=== PATIENT | male | born 1970 | race Caucasian/White ===

== ENCOUNTER 2016-08-08 06:51 | Emergency (ER) | payer OTHER, MEDICARE ==
[~2016-08-08 06:51] MED LIST: ASPIRIN CHILDRE81 MG PO; ASPIRIN81 M4 PO; ATORVASTATIN CA10 M1 PO; ATORVASTATIN CA40 MG PO; AUGMENTIN 875-1 EACH PO; FUROSEMIDE40 M1 PO; GLIPIZIDE10 M2 PO; GLIPIZIDE10 MG PO; LEXAPRO20 M1 PO; METFORMIN HCL1000 M1 PO; METFORMIN HCL500 MG PO; METFORMIN1000 MG PO; MYCOSTATIN POWD15 GM TOP; PERCOCET 325 MG1 TA2 PO; POTASSIUM CHLO10 ME1 PO; PRINIVIL10 MG PO; PRINIVIL20 M1 PO; TRAMADOL HCL50 M1 PO; TYLENOL TAB 32325 MG PO; TYLENOL500 MG PO; UNASYN 3000MG3000 M1 IV; ZOSYN 4 GM/100100 ML IV
--- NOTE | 2016-08-08 07:04 | ED GENERAL ADULT ---
History of Present Illness General Chief Complaint: General Adult Stated Complaint: HYPERGLACEMIA Source: patient, old records, EMS Exam Limitations: no limitations Vital Signs & Intake/Output Vital Signs & Intake/Output Vital Signs Date Time Temp Pulse Resp B/P B/P Pulse O2 O2 Flow FiO2 Mean Ox Delivery Rate 08/08 1229 98.9 102 20 123/76 97 Room Air 08/08 1051 99.0 108 20 140/83 96 Room Air 08/08 0920 97.9 88 20 125/71 96 Room Air 08/08 0758 98.0 103 20 127/79 08/08 0710 98 Room Air 08/08 0656 97.2 108 21 136/55 95 Room Air Allergies Coded Allergies: NO KNOWN ALLERGIES (07/08/14) Reconcile Medications Atorvastatin Calcium 10 MG TABLET 1 TAB PO DAILY CHOLESTEROL (Reported) Escitalopram Oxalate (Lexapro) 20 MG TABLET 1 TAB PO DAILY DEPRESSION ( Reported) Reason to Stop at ADM: HYPONATREMIA Furosemide 40 MG TABLET 1 TAB PO DAILY LEG EDEMA (Reported) Reason to Stop at ADM: AMIRAH Glipizide 10 MG TABLET 1 TAB PO BID DIABETES (Reported) Reason to Stop at ADM: ON ISS Lisinopril (Prinivil) 20 MG TABLET 1 TAB PO DAILY HYPERTENSION (Reported) Reason to Stop at ADM: AMIRAH Metformin HCl 1,000 MG TABLET 1 TAB PO BID DIABETES (Reported) Reason to Stop at ADM: AMIRAH Tramadol HCl 50 MG TABLET 50 MG PO Q6 PRN PAIN 5-10 Triage Nurses Notes Reviewed? yes HPI: Patient was sitting on his couch watching TV this morning when he suddenly felt lightheaded like he was going to pass out. Patient is also noticed that he is been urinating more frequently over the past few days. Patient is a diabetic does not check his blood sugar. Patient denies any chest pain or palpitations. There is no nausea or vomiting. He has been feeling generalized weakness. He denies any fevers or chills. There is no orthopnea. Patient states he has obstructive sleep apnea and uses a CPAP at night. Past History Travel History Traveled to [place] past 21 day No Medical History Any Pertinent Medical History? 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 No Review of Systems Review of Systems Constitutional: Reports: see HPI, weakness. EENTM: Reports: no symptoms. Respiratory: Reports: no symptoms. Cardiovascular: Reports: no symptoms. GI: Reports: no symptoms. Genitourinary: Reports: see HPI, frequency. Musculoskeletal: Reports: no symptoms. Skin: Reports: no symptoms. Neurological/Psychological: Reports: see HPI. Hematologic/Endocrine: Reports: no symptoms. Immunologic/Allergic: Reports: no symptoms. All Other Systems: Reviewed and Negative Physical Exam Physical Exam General Appearance: well developed/nourished, alert, awake, anxious, mild distress Head: atraumatic, normal appearance Eyes: Bilateral: PERRL, EOMI. Ears, Nose, Throat: normal pharynx, normal ENT inspection Neck: normal inspection, supple, full range of motion Respiratory: normal breath sounds, chest non-tender, no respiratory distress, lungs clear Cardiovascular: regular rate/rhythm, normal peripheral pulses Gastrointestinal: normal bowel sounds, soft, non-tender Back: normal inspection, normal range of motion Extremities: normal capillary refill, pedal edema Neurologic/Psych: no motor/sensory deficits, awake, alert, oriented x 3, normal mood/affect Skin: intact, normal color, warm/dry Lymphatic: no anterior cervical matt Core Measures ACS in differential dx? No CVA/TIA Diagnosis: No Severe Sepsis Present: No Septic Shock Present: No Progress Differential Diagnoses I considered the following diagnoses in my evaluation of the patient: [ Hyperglycemia, DKA, hyperosmolar nonketotic, electrolyte abnormality, UTI, AMI] Plan of Care: Orders Procedure Date/time Status Consistent Carbohydrate 3 08/08 L Active TROPONIN LEVEL 08/08 1154 Complete ARTERIAL BLOOD GAS (GEN) 08/08 0711 Complete Telemetry/Cutting Pressman 08/08 0711 Active URINALYSIS 08/08 700 Complete TROPONIN LEVEL 08/08 700 Complete COMPREHENSIVE METABOLIC PANEL 08/08 700 Complete CBC WITHOUT DIFFERENTIAL 08/08 700 Complete ACETONE 08/08 700 Complete EKG 08/08 700 Active Laboratory Tests 08/08/16 1214: Troponin I < 0.01 08/08/16 1120: Urine Color YEL, Urine Clarity CLEAR, Urine pH 6.0, Ur Specific [place] 1.015, Urine Protein TRACE H, Urine Ketones NEG, Urine Nitrite NEG, Urine Bilirubin NEG, Urine Urobilinogen 0.2, Ur Leukocyte Esterase NEG, Ur Microscopic SEDIMENT EXAMINED, Urine RBC RARE, Ur Epithelial Cells RARE, Urine Hemoglobin NEG, Urine Glucose >=1000 H 08/08/16 0725: pH 7.42, pCO2 35, pO2 83, HCO3 23, ABG O2 Sat (Measured) 95.0 L, P-50 (Temp Corrected) N, Carboxyhemoglobin 1.0 L, O2 Concentration % .21, O2 Delivery Method RA, Phlebotomy Draw Site RIGHT RADIAL 08/08/16 0710: Anion Gap 13, Estimated GFR > 60, BUN/Creatinine Ratio 21.3, Glucose 497 H, Calcium 8.6, Total Bilirubin 0.5, AST 13 L, ALT 29, Alkaline Phosphatase 117, Troponin I < 0.01, Total Protein 6.8, Albumin 3.6, Globulin 3.2, Albumin/ Globulin Ratio 1.1, CBC w Diff NO MAN DIFF REQ, RBC 4.87, MCV 82.0, MCH 27.4, RDW 14.0, MPV 9.2, Gran % 67.6, Lymphocytes % 24.0, Monocytes % 5.5, Eosinophils % 2.4, Basophils % 0.5, Absolute Granulocytes 5.4, Absolute Lymphocytes 1.9, Absolute Monocytes 0.4, Absolute Eosinophils 0.2, Absolute Basophils 0, PUBS MCHC 33.4, Acetone Level NEGATIVE Pre-Hospital EKG: NSR, nonspecific ST T wave chg Initial ED EKG: S TACH AT 107, NO STT CHANGES Prior EKG: unchanged Rhythm Strip: normal sinus rhythm Departure Departure Disposition: HOME OR SELF CARE Condition: Stable Clinical Impression Primary Impression: Hyperglycemia Referrals: JOLYNN CALLEJAS,ARGENTINA Koenig (PCP/Family) Additional Instructions: RETURN IF SYMPTOMS WORSEN OR FOR ANY CONCERNS Departure Forms: Customer Survey General Discharge Information Critical Care Note Critical Care Note Critical Care Time: non-applicable
[2016-08-08 07:49] LABS: ABSOLUTE BASOPHIL COUNT 0 /CUMM (0.0-0.2); ABSOLUTE EOSINOPHIL COUNT 0.2 /CUMM (0.0-0.7); ABSOLUTE GRANULOCYTE CT 5.4 /CUMM (1.4-6.5); ABSOLUTE LYMPH COUNT 1.9 /CUMM (1.2-3.4); ABSOLUTE MONOCYTE COUNT 0.4 /CUMM (0.10-0.60); BASOPHIL % 0.5 % (0.0-2.0); EOSINOPHIL % 2.4 % (0-5); GRANULOCYTE % 67.6 % (42.2-75.2); HEMATOCRIT 39.9 % (42-52); MEAN CORPUSCULAR HGB 27.4 PG (27.0-31.0); MEAN CORPUSCULAR HGB CONC 33.4 G/DL (33.0-37.0); MEAN PLATELET VOLUME 9.2 FL (7.4-10.4); PLATELET COUNT 210 /CUMM (130-400); RED BLOOD CELL CT 4.87 /CUMM (4.70-6.10)
[2016-08-08 12:29] VITALS: BP 123/76
== END 2016-08-08 13:28 ==
LOC: ERH 06:51
PROVIDERS: Emergency Medicine
DX: E11.65 Type 2 diabetes mellitus with hyperglycemia (principal)
CPT/HCPCS: 81001; 93005; 93010; 96360; 96361; 96372; J1815

== ENCOUNTER 2017-07-03 18:49 | Emergency (ER) | payer OTHER ==
[~2017-07-03] VITALS: Ht 167.6 cm; Wt 136.1 kg
--- NOTE | 2017-07-03 19:35 | ED GI/GU/ABDOMINAL COMPLAINT ---
History of Present Illness General Chief Complaint: Abdominal Pain/Flank Pain Stated Complaint: L LOWER FLANK PAIN/VOMITNG Source: patient Exam Limitations: no limitations Vital Signs & Intake/Output Vital Signs & Intake/Output Vital Signs Date Time Temp Pulse Resp B/P B/P Pulse O2 O2 Flow FiO2 Mean Ox Delivery Rate 07/03 2234 97.1 91 20 137/71 95 Room Air 07/03 1925 97.0 81 20 185/77 Allergies Coded Allergies: NO KNOWN ALLERGIES (07/08/14) Reconcile Medications Atorvastatin Calcium 10 MG TABLET 1 TAB PO DAILY CHOLESTEROL (Reported) Escitalopram Oxalate (Lexapro) 20 MG TABLET 1 TAB PO DAILY DEPRESSION ( Reported) Reason to Stop at ADM: HYPONATREMIA Furosemide 40 MG TABLET 1 TAB PO DAILY LEG EDEMA (Reported) Reason to Stop at ADM: AMIRAH Glipizide 10 MG TABLET 1 TAB PO BID DIABETES (Reported) Reason to Stop at ADM: ON ISS Ibuprofen 800 MG TABLET 1 TAB PO TID PRN PAIN Lisinopril (Prinivil) 20 MG TABLET 1 TAB PO DAILY HYPERTENSION (Reported) Reason to Stop at ADM: AMIRAH Metformin HCl 1,000 MG TABLET 1 TAB PO BID DIABETES (Reported) Reason to Stop at ADM: AMIRAH Ondansetron (Zofran Odt) 4 MG TAB.RAPDIS 1 TAB SL TID PRN NAUSEA Tramadol HCl 50 MG TABLET 50 MG PO Q6 PRN PAIN 5-10 Triage Note: PT BIBA TO TRIAGE C/O LEFT FLANK PAIN X 1 WEEK, WORSENING TODAY WITH N/V. DENIES URINARY S/SX. DENIES HX KIDNEY STONES, REPORTS HX OF GALLSTONES. Triage Nurses Notes Reviewed? yes Onset: Gradual Duration: hour(s): Timing: single episode today Quality/Severity: sharpness Location: left flank Radiation: no radiation Activities at Onset: none Modifying Factors: Worsens With: palpation, vomiting. Associated Symptoms: abdominal pain, nausea/vomiting HPI: 47 yo gentleman h/o brandi, diabetes, depression, presents with 4-5 hours of left flank pain and nausea, without diarrhea, dysuria , fever, chest pain. He notes sudden onset, no suspicious ingestions. He is otherwise well. Past History Travel History Traveled to [place] past 21 day No Medical History Any Pertinent Medical History? see below for history Neurological: vertigo EENT: periodontal abscess June 2014 Cardiovascular: chronic venous insuff, hypertension, hyperlipidemia Respiratory: obstructive sleep apnea Gastrointestinal: NONE Hepatic: NONE Renal: NONE Musculoskeletal: osteoarthritis Psychiatric: anxiety, depression Endocrine: diabetes, obesity Blood Disorders: NONE Cancer(s): NONE HOSPITAL NURSE/Reproductive: NONE History of MRSA: No History of VRE: No History of CDIFF: No Surgical History Surgical History: status post bilateral partial calcanectomies Psychosocial History Who do you live with Patient/Self Services at Home None What is your primary language Syriac Tobacco Use: Never used ETOH Use: denies use Family History Family History, If Any: BROTHER FH: schizophrenia FATHER FH: diabetes mellitus Hx Contributory? No Review of Systems Review of Systems Constitutional: Reports: no symptoms. EENTM: Reports: no symptoms. Respiratory: Reports: no symptoms. Cardiovascular: Reports: no symptoms. GI: Reports: no symptoms. Genitourinary: Reports: no symptoms. Musculoskeletal: Reports: no symptoms. Skin: Reports: no symptoms. Neurological/Psychological: Reports: no symptoms. Hematologic/Endocrine: Reports: no symptoms. Immunologic/Allergic: Reports: no symptoms. All Other Systems: Reviewed and Negative Physical Exam Physical Exam General Appearance: well developed/nourished, mild distress Head: atraumatic, normal appearance Eyes: Bilateral: normal appearance. Ears, Nose, Throat, Mouth: hearing grossly normal, moist mucous membrane Neck: normal inspection, supple, full range of motion Respiratory: normal breath sounds, chest non-tender, no respiratory distress, quiet respiration, lungs clear Cardiovascular: regular rate/rhythm Gastrointestinal: normal bowel sounds, soft, left back/flank tenderness. no rebound. no guarding. Back: normal inspection, normal range of motion Extremities: normal range of motion Neurologic/Psych: no motor/sensory deficits, awake, alert, oriented x 3 Skin: intact, normal color, warm/dry Core Measures ACS in differential dx? No Sepsis Present: No Sepsis Focused Exam Completed? No Progress Differential Diagnosis: ureterolithiasis, urinary retention, UTI/pyelo Plan of Care: Orders Procedure Date/time Status AMYLASE 07/04 1927 Complete EKG 07/04 1927 Active URINALYSIS 07/03 1850 Complete TROPONIN LEVEL 07/03 1850 Complete LIPASE 07/03 1850 Complete COMPREHENSIVE METABOLIC PANEL 07/03 1850 Complete CBC WITHOUT DIFFERENTIAL 07/03 1850 Complete Laboratory Tests 07/03/177: Urine Color YEL, Urine Clarity CLEAR, Urine pH 7.0, Ur Specific [place] 1.025, Urine Protein 100 H, Urine Ketones NEG, Urine Nitrite NEG, Urine Bilirubin NEG, Urine Urobilinogen 0.2, Ur Leukocyte Esterase NEG, Ur Microscopic SEDIMENT EXAMINED, Urine RBC 1-3, Urine WBC RARE, Ur Epithelial Cells RARE, Urine Bacteria FEW H, Urine Hemoglobin SMALL H, Urine Glucose NEG 07/03/171927: Amylase Cancelled 07/03/171927: Anion Gap 13, Estimated GFR > 60, BUN/Creatinine Ratio 12.5, Glucose 166 H, Calcium 8.5, Total Bilirubin 0.6, AST 14 L, ALT 31, Alkaline Phosphatase 93, Troponin I < 0.01, Total Protein 7.6, Albumin 4.0, Globulin 3.6, Albumin/ Globulin Ratio 1.1, Amylase 40, Lipase 61, CBC w Diff NO MAN DIFF REQ, RBC 4.51 L, MCV 84.9, MCH 26.9 L, MCHC 31.7 L, RDW 14.7 H, MPV 8.2, Gran % 68.9, Lymphocytes % 21.0, Monocytes % 4.8, Eosinophils % 4.6, Basophils % 0.7, Absolute Granulocytes 5.1, Absolute Lymphocytes 1.5, Absolute Monocytes 0.4, Absolute Eosinophils 0.3, Absolute Basophils 0 Diagnostic Imaging: Viewed by Me: CT Scan. Discussed w/RAD: CT Scan. Radiology Impression: PATIENT: RIDDHI SHEETS PRESENT AGE: 47 PATIENT ACCOUNT NO: [id number] : 69 LOCATION: [facility] ORDERING PHYSICIAN: Brett Bryson MD SERVICE DATE: 07/03/17 EXAM TYPE: CAT - CT ABD & PELVIS W/O IV CONTRAS EXAMINATION: CT ABDOMEN AND PELVIS WITHOUT CONTRAST CLINICAL INFORMATION: Left flank pain. Question stones. COMPARISON: CT abdomen and pelvis 11/27/2015. TECHNIQUE: Multidetector volumetric imaging was performed from the superior aspect of the liver through the pubic symphysis. Sagittal and coronal reformatted images were obtained on the technologist's workstation. DLP: 1620 mGy-cm FINDINGS: LUNG BASES: There is rounded atelectasis at the right lung base. Associated pleural thickening. LIVER, GALLBLADDER, AND BILIARY TREE: There is a degree of hepatic steatosis. Mild hepatomegaly. No biliary ductal dilatation. Cholecystectomy clips. PANCREAS: Unremarkable. SPLEEN : Unremarkable. ADRENAL GLANDS: Unremarkable. KIDNEYS AND URETERS: There is asymmetric left perinephric and periureteral stranding. There is mild hydroureteronephrosis on the left. This extends from a focally dilated region of ureteral dilatation at the level of the upper sacrum, well demonstrated on axial image 72/108 and coronal image 65/153, where it measures 1.7 cm in diameter. No radiodense calculus. BLADDER: Partially distended without focal abnormality. GASTROINTESTINAL TRACT: Bowel gas pattern is nonobstructive. No evidence of acute bowel pathology. The appendix is unremarkable. A portion of the left abdomen is obscured as it is outside of the [id number]. ABDOMINAL WALL: Not well visualized. LYMPH NODES: Normal. VASCULAR: Unremarkable. PELVIC VISCERA: No free pelvic fluid. Prostate gland and seminal vesicles are unremarkable. OSSEOUS STRUCTURES: No acute osseous abnormalities. Mild degenerative changes of the spine. IMPRESSION: 1. Mild asymmetric left hydroureteronephrosis extending from a focally dilated portion of the left ureter (see wilson images). No discrete calculus is demonstrated. This is nonspecific in etiology. Consider a noncalcified ureteral calculus or neoplasm. Consider urology consultation and retrograde pyelography. 2. No discrete renal calculus is demonstrated. 3. Nonobstructive bowel gas pattern. 4. Hepatic steatosis and mild hepatomegaly. 5. Right lower lobe rounded atelectasis. DICTATED BY: Rodrigue Lozoya MD DATE/TIME DICTATED:07/03/172015 EDITOR CONTINUITY AND SCRIPT:PENNIE DATE/TIME TRANSCRIBED:2015 CONFIDENTIAL, DO NOT COPY WITHOUT APPROPRIATE AUTHORIZATION. < Electronically signed in Other Vendor System> SIGNED BY: Rodrigue Lozoya MD 07/03/172039 Initial ED EKG: nsr, no acute changes. Departure Departure Disposition: HOME OR SELF CARE Condition: Stable Clinical Impression Primary Impression: Abdominal pain Secondary Impressions: Renal colic on left side Referrals: Dianna CALLEJAS,Isidra Koenig (PCP/Family) Departure Forms: Customer Survey General Discharge Information Prescriptions: Current Visit Scripts Ibuprofen 1 TAB PO TID PRN PAIN #30 TAB Ondansetron (Zofran Odt) 1 TAB SL TID PRN NAUSEA #10 TAB Comments 07/03/18, 22:42... Pt feels better after supportive medications. Ct scan notable for dilated left ureter... most consistent with a passed kidney stone given his symptoms. I counseled him to follow up with a urologist to follow up the radiologist's reccommendations.
[2017-07-03 19:40] LABS: ABSOLUTE BASOPHIL COUNT 0 /CUMM (0.0-0.2); ABSOLUTE EOSINOPHIL COUNT 0.3 /CUMM (0.0-0.7); ABSOLUTE GRANULOCYTE CT 5.1 /CUMM (1.4-6.5); ABSOLUTE LYMPH COUNT 1.5 /CUMM (1.2-3.4); ABSOLUTE MONOCYTE COUNT 0.4 /CUMM (0.10-0.60); BASOPHIL % 0.7 % (0.0-2.0); EOSINOPHIL % 4.6 % (0-5); GRANULOCYTE % 68.9 % (42.2-75.2); HEMATOCRIT 38.3 % (42-52); MEAN CORPUSCULAR HGB 26.9 PG (27.0-31.0); MEAN CORPUSCULAR HGB CONC 31.7 G/DL (33.0-37.0); MEAN CORPUSCULAR VOLUME 84.9 FL (80.0-94.0); MEAN PLATELET VOLUME 8.2 FL (7.4-10.4); PLATELET COUNT 269 /CUMM (130-400); RBC DISTRIBUTION WIDTH 14.7 % (11.5-14.5); RED BLOOD CELL CT 4.51 /CUMM (4.70-6.10); WHITE BLOOD CELL COUNT 7.4 /CUMM (4.8-10.8)
--- NOTE | 2017-07-03 20:40 | CT SCAN REPORT ---
EXAMINATION: CT ABDOMEN AND PELVIS WITHOUT CONTRAST CLINICAL INFORMATION: Left flank pain. Question stones. COMPARISON: CT abdomen and pelvis 11/27/2015. TECHNIQUE: Multidetector volumetric imaging was performed from the superior aspect of the liver through the pubic symphysis. Sagittal and coronal reformatted images were obtained on the technologist's workstation. DLP: 1620 mGy-cm FINDINGS: LUNG BASES: There is rounded atelectasis at the right lung base. Associated pleural thickening. LIVER, GALLBLADDER, AND BILIARY TREE: There is a degree of hepatic steatosis. Mild hepatomegaly. No biliary ductal dilatation. Cholecystectomy clips. PANCREAS: Unremarkable. SPLEEN: Unremarkable. ADRENAL GLANDS: Unremarkable. KIDNEYS AND URETERS: There is asymmetric left perinephric and periureteral stranding. There is mild hydroureteronephrosis on the left. This extends from a focally dilated region of ureteral dilatation at the level of the upper sacrum, well demonstrated on axial image 72/108 and coronal image 65/153, where it measures 1.7 cm in diameter. No radiodense calculus. BLADDER: Partially distended without focal abnormality. GASTROINTESTINAL TRACT: Bowel gas pattern is nonobstructive. No evidence of acute bowel pathology. The appendix is unremarkable. A portion of the left abdomen is obscured as it is outside of the [id number]. ABDOMINAL WALL: Not well visualized. LYMPH NODES: Normal. VASCULAR: Unremarkable. PELVIC VISCERA: No free pelvic fluid. Prostate gland and seminal vesicles are unremarkable. OSSEOUS STRUCTURES: No acute osseous abnormalities. Mild degenerative changes of the spine. IMPRESSION: 1. Mild asymmetric left hydroureteronephrosis extending from a focally dilated portion of the left ureter (see wilson images). No discrete calculus is demonstrated. This is nonspecific in etiology. Consider a noncalcified ureteral calculus or neoplasm. Consider urology consultation and retrograde pyelography. 2. No discrete renal calculus is demonstrated. 3. Nonobstructive bowel gas pattern. 4. Hepatic steatosis and mild hepatomegaly. 5. Right lower lobe rounded atelectasis.
[2017-07-03 22:35] VITALS: BP 137/71
[2017-07-03] MEDS ORDERED: IBUPROFEN800 M1 PO (22:42)
[2017-07-03] MEDS ORDERED: ZOFRAN ODT4 M1 SL (22:42)
== END 2017-07-03 22:53 ==
LOC: ERH 18:49
PROVIDERS: Physician Assistant Medical
DX: N23 Unspecified renal colic (principal)
CPT/HCPCS: 74176; 81001; 93005; 93010; 96361; 96374; 96375; J0131; J1885; J2405